=== PATIENT | female | born 1945 | race Caucasian/White ===

== ENCOUNTER 2020-01-02 14:33 | Emergency (ER) | payer MEDICARE, MEDICAID, SELFPAY ==
--- NOTE | ~2020-01-02 | XR_ITS ---
EXAMINATION: XR chest 2V DATE: 01/02/2020 15:57 INDICATION: Productive cough, sore throat and fever TECHNIQUE: frontal and lateral views of the chest were obtained. COMPARISON: Chest radiograph dated 03/28/2018 FINDINGS: The lungs remain clear with no focal airspace opacities, pulmonary edema, pleural effusion or pneumot horax. The cardiomediastinal silhouette is normal. Median sternotomy wires. Mild to moderate thoracic spondylosis. IMPRESSION: 1. No acute cardiopulmonary disease. Reviewed, dictated and finalized at location [facility]
[2020-01-02 14:39] VITALS: BP 114/67; PULSE 112; RESP 18; TEMP 36.4; O2SAT 97
[2020-01-02 15:05] LABS: Hematocrit 35.5 % (37.0-47.0); Hemoglobin 11.5 g/dL (12.0-15.0); Mean Corpuscular HGB Conc 32.4 g/dl (32-36); Mean Corpuscular Hemoglobin 28.3 pg (26-34); Mean Corpuscular Volume 87.2 fl (80-100); Platelet Count Result 167 k/mm3 (150-375); Red Blood Count 4.07 M/mm3 (4.2-5.4); Red Cell Distribution Width 18.4 % (11.5-14.5); White Blood Count 7.1 K/mm3 (4.5-10.0)
[2020-01-02 15:17] LABS: Eosinophils Absolute Manual 0.07 K/mm3 (0.02-0.5); Eosinophils Percent Manual 1 % (0-4); Lymphocytes Absolute Manual 6.24 K/mm3 (1.1-4.5); Monocytes Absolute Manual 0.14 K/mm3 (0.1-0.90); Monocytes Percent Manual 2 % (3-9); Neutrophils Percent Manual 9 % (46-73); Smudge Cells FEW; Total Cells Counted 100
--- NOTE | 2020-01-02 15:17 | ED.URI ---
HPI - URI/Sore Throat General Chief Complaint: Upper Respiratory Infection Stated Complaint: strep? pneumonia? Time Seen by Provider: 01/02/20 15:09 Source: patient Mode of arrival: ambulatory Limitations: no limitations History of Present Illness HPI Narrative: A 74 y/o female presents to the ED with c/o possible pneumonia. Pt states that 1.5 weeks ago she started to have productive cough and SOB. The cough produces a green phlegm. She notes that the SOB and cough is accompanied by sore throat, fever, rhinorrhea, N/V, otalgia, and eye irritation. Pt does not note any aggravating or alleviating factors for her symptoms. Pt is on Prednisone daily. MD elicited complaint: other (Possible pneumonia) Onset (ago): week(s) (1.5) Exacerbating factors: nothing Relieving factors: nothing Associated symptoms: fever, rhinorrhea, sore throat, cough (Productive), shortness of breath, nausea, vomiting and other (Otalgia, eye irritation) Related Data Home Medications Medication Instructions Recorded Confirmed acyclovir TOPICAL 01/02/20 alprazolam 01/02/20 atorvastatin 01/02/20 carvedilol 01/02/20 clopidogrel 01/02/20 fluticasone propion-salmeterol INHALATION 01/02/20 [Advair Diskus] hydrocodone-acetaminophen 01/02/20 isosorbide mononitrate mg PO 01/02/20 lisinopril 01/02/20 metformin mg 01/02/20 prednisone 01/02/20 01/02/20 Allergies Allergy/AdvReac Type Severity Reaction Status Date / Time Sulfa (Sulfonamide Allergy Unknown Unknown Verified 01/02/20 14:43 Antibiotics) codeine AdvReac Mild NAUSEA AND Verified 01/02/20 14:43 VOMITING Review of Systems Review of Systems: Narrative: CONSTITUTIONAL: Denies chills or sweats. Reports fever. EYES: Denies visual changes, redness, or discharge. Reports eye irritation. ENT: Denies congestion. Reports sore throat, rhinorrhea, and otalgia. CARDIOVASCULAR: Denies chest pain, palpitations, or edema. RESPIRATORY: Reports productive cough or dyspnea. GASTROINTESTINAL: Denies abdominal pain or diarrhea. Reports nausea and vomiting. GENITOURINARY: Denies dysuria or hematuria. SKIN: Denies rash or itching. MUSCULOSKELETAL: Denies back pain, joint pain, or myalgia. NEUROLOGIC: Denies headache, numbness, or weakness. All systems reviewed & are unremarkable except as noted in HPI and below PMFSH Past Medical History Medical History (Updated 01/02/20 @ 18:07 by Karen Barajas MD) Anemia Arthritis CAD (coronary artery disease) Chronic back pain COPD (chronic obstructive pulmonary disease) Depression Diabetes GERD (gastroesophageal reflux disease) Glaucoma Heart attack History of blood transfusion HTN (hypertension) Hyperlipidemia Kidney stones Mitral valve prolapse Osteoporosis Pneumonia Post-menopausal Shingles Uterine cancer UTI (urinary tract infection) Surgical History Surgical History (Updated 01/02/20 @ 15:31 by Anastasiya Vela) History of appendectomy History of arthroscopic knee surgery Right History of cataract surgery History of hysterectomy History of spinal surgery Hx of CABG Social History Social History (Updated 01/02/20 @ 15:31 by Anastasiya Vela) Years smoked: 5 Smoking status: Former smoker Tobacco type: cigarettes Smoking end date: 11/03/79 Gender identity (if verbalized by the patient): Female Exam Narrative: Exam Narrative: GENERAL: Well-appearing, well-nourished, and in no acute distress. HEAD: Normocephalic, atraumatic. EYES: PERRLA and EOMI. ENT: Nares clear, no rhinorrhea or epistaxis. Mucous membranes dry. Erythematous oropharynx. Serous fluid in left tympanic membrane, right tympanic membrane is normal. NECK: Supple. CHEST: Course breath sounds on the right and crackles. No respiratory distress. HEART: Regular rate and rhythm. No murmur heard. Normal peripheral pulses. ABDOMEN: Soft, nontender, nondistended, normal active bowel sounds. EXTREMITIES: Normal range of motion. No edema. SKIN: Warm, dry, no rash. NE
[2020-01-02 15:18] LABS: Lactic Acid Reflex 1.5 mmol/L (0.7-2.1); Lymphocytes Percent Manual 88 % (18-44); Ovalocytes 1+ (NORMAL); Platelet Estimate Adequate (Adequate)
[2020-01-02 15:19] LABS: Blood Urea Nitrogen 21 mg/dL (7-17); Carbon Dioxide 24 mmol/L (22-30); Chloride 101 mmol/L (98-107); Estimated CRCL calculation 40 ml/min; Estimated Glomerular Filt Rate 55; Glucose 192 mg/dL (65-105); Potassium 4.3 mmol/L (3.4-5.0); Sodium 134 mmol/L (137-145)
[2020-01-02] MEDS: ACETAMINOPHEN 500 MG TABLET 1000 MG PO (15:27)
[2020-01-02] MEDS: DEXAMETHASONE SOD PHOS INJ 4 MG/ML VIAL 10 MG BY MOUTH (15:30)
[2020-01-02] MEDS: ONDANSETRON INJ 4 MG/2 ML VIAL IV PUSH (15:58)
[2020-01-02] MEDS: SODIUM CHLORIDE 0.9% IV 1,000 ML 999 ML IV CONT (15:58)
[2020-01-02 16:28] LABS: Prothrombin Time 13.2 Seconds (11.1-14.7)
[2020-01-02 16:29] LABS: Partial Thromboplastin Time 32.6 SECONDS (22.3-36.8)
[2020-01-02 16:37] LABS: Troponin I < 0.012 ng/mL (0.000-0.034)
[2020-01-02 17:49] LABS: Add Urine Microscopic? NO; Appearance Urine Clear (Clear); Bilirubin Urine Negative (Negative); Blood Urine Negative (Negative); Color Urine Yellow (Yellow); Glucose Urine UA Negative (Negative); Ketones Urine Negative (Negative); Leukocyte Esterase Ur Negative LEU/UL (Negative); Nitrate Urine Negative (Negative); Protein Urine Negative (Negative); Specific Grav Ur 1.015 (1.001-1.035); Urobilinogen Urine Negative mg/dL (<2.0)
[2020-01-02 18:53] VITALS: BP 109/57; PULSE 90; RESP 18; O2SAT 98
--- NOTE | 2020-01-07 14:07 | PC.NURSE ---
LATE ENTRY This note is being entered to document information to the patient's record. The following information was omitted on [01/02/2020], by [SERJIO Johnston]. NS 1000mL infused with a stop time of 1700.
== END 2020-01-02 18:54 | disposition home or self-care (01) ==
PROVIDERS: Emergency Provider Emergency Medicine; PCP Family Medicine
DX: B34.9 Viral infection, unspecified (principal); J02.0 Streptococcal pharyngitis; D64.9 Anemia, unspecified; M19.90 Unspecified osteoarthritis, unspecified site; I25.10 Atherosclerotic heart disease of native coronary artery without angina pectoris; J44.9 Chronic obstructive pulmonary disease, unspecified; E11.9 Type 2 diabetes mellitus without complications; K21.9 Gastro-esophageal reflux disease without esophagitis; H40.9 Unspecified glaucoma; I25.2 Old myocardial infarction; I10 Essential (primary) hypertension; E78.5 Hyperlipidemia, unspecified; Z87.442 Personal history of urinary calculi; I34.1 Nonrheumatic mitral (valve) prolapse; M81.0 Age-related osteoporosis without current pathological fracture; Z85.42 Personal history of malignant neoplasm of other parts of uterus; Z87.440 Personal history of urinary (tract) infections; Z87.891 Personal history of nicotine dependence; Z98.49 Cataract extraction status, unspecified eye; Z95.1 Presence of aortocoronary bypass graft; F32.9 Major depressive disorder, single episode, unspecified
CPT/HCPCS: 36415; 71046; 80048; 81003; 83605; 84484; 85025; 85610; 85730; 87040; 87077; 87081; 87186; 87804; 87880; 96361; 96374; 99284; A9270; J1100; J2405; J7030